=== PATIENT | female | born 1975 | race Caucasian/White ===

== ENCOUNTER → 2016-07-04 17:50 | Emergency (ER) | payer BC ==
[~2016-07-04 17:50] MED LIST: ENDOCET1 TA3 PO; FISH OIL PO; FLECTOR PATCH TOP; FLEX PO; HYDROCHLOROT25 MG PO; LIPITOR10 PO; MEDROLPAK4 PO; MSCONT15 PO; NAP500 PO; PRILOSEC40 MG PO; ROXICODONE15 MG PO; V5 PO
== END | disposition home or self-care (01) ==
LOC: ER 17:50
DX: M54.2 Cervicalgia (principal); E78.5 Hyperlipidemia, unspecified
CPT/HCPCS: 96372; 99282; J1170

== ENCOUNTER 2016-07-12 17:05 | Observation (INO) | payer BC ==
--- NOTE | ~2016-07-12 | OP ---
Record Of Operation [facility] [address]. [address] NAME: SHAHID CAROLINA : 79 STATUS : DIS Elizabeth PAT#: [id number] AGE: 41 ADM/REG DATE : 07/12/16 MR#: [id number] REPORT SERV DATE: 07/15/16 DICTATED BY: LISA MARTINEZ II DATE: 07/15/16 REPORT STATUS : Draft TRANSCRIBED BY: MODGina DATE: 07/15/16 DATE OF PROCEDURE: 07/13/2016 PREOPERATIVE DIAGNOSES: 1. Severe cervical cord compression C4-5. 2. C4-5 moderate spondylosis. 3. Cervical myelopathy. POSTOPERATIVE DIAGNOSES: 1. Severe cervical cord compression C4-5. 2. C4-5 moderate spondylosis. 3. Cervical myelopathy. PROCEDURE: 1. C4-C5 total disk replacement. 2. Use of the microscope. SURGEON: Lisa Martinez M.D. FLUIDS: One liter lactated Ringer's. ESTIMATED BLOOD LOSS: 15 mL. DRAIN: One drain. COMPLICATIONS: None. IMPLANTS: Medtronic total disk replacement (LP). PREOPERATIVE HISTORY: This is a very friendly, 41-year-old female with severe cord compression secondary to a very large HNP. Her symptoms have been extreme including pain as well as development of myelopathy. We discussed the merits of surgery. She was desperate for pain relief as well as improvement in her symptoms of myelopathy. We discussed the pros and cons of surgery, and she wished to proceed. DESCRIPTION OF PROCEDURE: After informed consent was obtained, the patient was brought to the operating room at her request, and general anesthesia achieved. She was placed in supine position, and the neck and iliac crest were prepped and draped in a sterile fashion. The right-sided incision was now performed and the retropharyngeal approach completed. The C4-5 level was then radiographically confirmed. The Rehab Specialist retractors were placed underneath the longus colli muscles followed by deflation and reinflation of the ET tube. The [place] pins were placed followed by use of the microscope. Under microscopic visualization, the diskectomy was completed, and the pituitary rongeurs, Kerrison rongeurs, the curettes were used. The endplates were denuded of their cartilage followed by removal of the posterior foraminal osteophytes. Record Of Operation [facility] [address] [place]. [address] NAME: SHAHID CAROLINA : 79 STATUS : DIS Elizabeth PAT#: [id number] AGE: 41 ADM/REG DATE : 07/12/16 MR#: [id number] REPORT SERV DATE: 07/15/16 DICTATED BY: LISA MARTINEZ II DATE: 07/15/16 REPORT STATUS : Draft TRANSCRIBED BY: JUDITH DATE: 07/15/16 Next, the rent was then identified and the posterior longitudinal ligament removed to expose a very large amount of disk material, severely compressing the spinal cord. The fragments of disk were now removed. The cord was now acceptably decompressed. The foraminotomies were further carried out to further decompress the exiting nerve roots from the foraminal osteophytes. The area was now irrigated. Next, the Medtronic system was now trialed and the appropriate size chosen. The keel cuts were then made, followed by placement of the artificial disk replacement using standard technique. Multiplanar imaging confirmed acceptable placement of the implants. The area was now found to be hemostatic except for some very mild cancellous bleeding, for which a deep drain was placed. Standard closure was performed. The patient extubated and transferred to PACU in stable condition. CLEVE/JUDITH Lisa Martinez II, M.D. / [id number] CC: Monse Britt II, PAUL E
--- NOTE | ~2016-07-12 | HP ---
History And Physical [facility] [id number] [place] [address] NAME: SHAHID CAROLINA : 79 STATUS : ADM Elizabeth PAT#: [id number] AGE: 41 ADM/REG DATE : 07/12/16 MR#: [id number] REPORT SERV DATE: 07/13/16 DICTATED BY: LISA MARTINEZ II DATE: 07/13/16 REPORT STATUS : Draft TRANSCRIBED BY: MODGina DATE: 07/13/16 DATE OF ADMISSION: 07/12/2016 CHIEF COMPLAINT: Severe neck pain with difficulty walking. HISTORY OF PRESENT ILLNESS: This is a friendly 41-year-old who was sent over from Dr. Aragon for emergent evaluation. She has had to go to the emergency room secondary to pain. She reports excruciating pain in the neck with radiating into the arms. She reports severe and acute difficulty with coordination in her upper extremities. She reports some difficulty with coordination of walking, which occurred suddenly and also associated with the onset of the severe pain. She denies any bowel or bladder changes. She does have a history of back problems, treated. She reports some neck pain over the years, but this situation has caused severe 10/10 pain. PAST MEDICAL HISTORY: As above. 1. History of lumbar DDD. 2. Obesity. 3. Gastroesophageal reflux disease. 4. Hypertension. REVIEW OF SYSTEMS: Noncontributory. MEDICATIONS: Include Lipitor, , steroid, Naprosyn, Prilosec, , and Flector patch, and also fish oil. PHYSICAL EXAMINATION: GENERAL: Reveals female in moderate distress secondary to severe pain. NECK: Her neck range of motion is severely restricted secondary to pain. CHEST: Her chest reveals no stridor on inspiration or expiration. CARDIOVASCULAR: Regular rate and rhythm when I palpate the radial pulse. NEURO: She has a positive Jalen sign and a positive Lhermitte sign. She has some mild weakness in her upper extremities, but diffuse dysesthesias in both arms. Her reflexes are hyperreflexic in the upper extremities and lower extremities. X-rays reveal a moderate disk space height loss at C4-5. The remaining disks appear age appropriate. The MRI shows a massive HNP at C4-5 with severe cord compression. There is no myelomalacia present because this is a very acute problem and there is not a good enough time for myelomalacia to develop in all likelihood. IMPRESSION AND PLAN: Admit for urgent surgical decompression secondary to severe cord compression. The C4-5 disk herniation is massive causing severe acute cervical myelopathy. This is an urgent surgical indication. She will be admitted and again surgery performed urgently. I have discussed this with her and her family. She is very eager to proceed History And Physical [address] [address] NAME: SHAHID CAROLINA : 79 STATUS : ADM Elizabeth PAT#: [id number] AGE: 41 ADM/REG DATE : 07/12/16 MR#: [id number] REPORT SERV DATE: 07/13/16 DICTATED BY: LISA MARTINEZ II DATE: 07/13/16 REPORT STATUS : Draft TRANSCRIBED BY: JUDITH DATE: 07/13/16 secondary to pain and also being worried about her neurologic issue. CLEVE/JUDITH Lisa Martinez II, M.D. / [id number] CC: Monse Britt II, PAUL E Sadiq Sohani, M.D.
[2016-07-12 17:58] LABS: HEMATOCRIT 41.9 % (36.0-48.0); HEMOGLOBIN 14.3 g/dL (12.0-16.0); MEAN CORPUSCULAR HEMOGLOB 31.8 pg (26.0-34.0); MEAN CORPUSCULAR VOLUME 93.1 fL (80-100); MEAN PLATELET VOLUME 9.4 fL (9.2-13.0); PLATELET COUNT 218 10/3/uL (150-400); RBC DISTRIBUTION WIDTH 12.8 % (12.0-16.0); WHITE BLOOD CELLS 12.5 10/3/uL (4.5-10.5)
[2016-07-12 18:07] LABS: MANUAL DIFF YES %; MEAN CORPUS HGB CONC 34.1 g/dL (32.0-36.0)
[2016-07-12 18:20] LABS: BAND NEUTROPHILS 2 %; EOSINOPHILS 4 %; LYMPHOCYTES 25 %; LYMPHOCYTES ABSOLUTE (CALC) 3.13 10/3/uL (0.67-4.30); MONOCYTES 5 %; MONOCYTES ABSOLUTE (CALC) 0.63 10/3/uL (0.21-1.20); NEUTROPHILS ABSOLUTE (CALC) 8.25 10/3/uL (2.02-8.40); SEGMENTED NEUTROPHIL (0) 64 %; TOTAL NUCLEATED CELLS 100
[2016-07-12 18:21] LABS: PLATELET ESTIMATE ADQ (ADEQUATE); RBC MORPHOLOGY NORM (NORMAL)
[2016-07-12] MEDS ORDERED: HYDROCHLOROT25 MG PO (19:34)
[2016-07-12] MEDS ORDERED: LIPITOR10 PO (19:34)
[2016-07-12] MEDS ORDERED: NAP500 PO (19:34)
[2016-07-12] MEDS ORDERED: PRILOSEC40 MG PO (19:34)
[2016-07-12] MEDS ORDERED: MEDROLPAK4 PO (19:35)
[2016-07-12] MEDS ORDERED: FLECTOR PATCH TOP (19:35)
[2016-07-12] MEDS ORDERED: ENDOCET1 TA3 PO (19:35)
[2016-07-12] MEDS ORDERED: FLEX PO (19:35)
[2016-07-12] MEDS ORDERED: FISH OIL PO (19:36)
[2016-07-14] MEDS ORDERED: V5 PO (11:36)
[2016-07-14] MEDS ORDERED: MSCONT15 PO (11:36)
[2016-07-14] MEDS ORDERED: ROXICODONE15 MG PO (11:36)
== END 2016-07-14 12:47 | disposition home or self-care (01) ==
LOC: 3SO 17:05
PROVIDERS: Orthopaedic Surgery
PROC: 0RJ Upper Joints, Inspection (ICD-10-PCS; principal; 2016-07-13 07:00)
DX: M47.12 Other spondylosis with myelopathy, cervical region (principal); E66.9 Obesity, unspecified; K21.9 Gastro-esophageal reflux disease without esophagitis; I10 Essential (primary) hypertension; Z90.89 Acquired absence of other organs
CPT/HCPCS: 84703; 85025; 88304; 88311; 96374; 96375; 96376; A9270-GY; C1713; G0378; J0690; J2250; J2405; J2710; J3010